=== PATIENT | female | born 1975 | race Asian ===

== ENCOUNTER 2018-03-13 13:11 | Inpatient (IN) | payer OTHER ==
[~2018-03-13] VITALS: Ht 160 cm; Wt 53.1 kg
[2018-03-13] MEDS ORDERED: Morphine Sulfate 2mg/ml Inj IVP ONE (13:45)
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
[2018-03-13 13:57] VITALS: BP 88/56
[2018-03-13] MEDS ORDERED: fentaNYL 100 mcg/2 mL IV ONE ×3 (15:00→19:00)
--- NOTE | 2018-03-13 15:07 | Diagnostic Imaging Report ---
Indication: Chest pain Technique: One view of the chest Comparison: none Findings: Lungs and pleural spaces are clear. Heart size is normal Impression: No acute process
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
[2018-03-13 15:36] LABS: MEAN CORPUSCULAR VOLUME 93 FL (80-99); PLATELET COUNT 305 K/UL (150-450); RED BLOOD COUNT 4.41 M/UL (4.20-5.40); RED CELL DISTRIBUTION WIDTH 10.4 % (11.6-14.8); WHITE BLOOD COUNT 18.2 K/UL (4.8-10.8)
[2018-03-13 15:49] LABS: ANION GAP 11 mmol/L (5-15); BLOOD UREA NITROGEN 12 mg/dL (7-18); CALCIUM 9.3 MG/DL (8.5-10.1); CARBON DIOXIDE 24 MMOL/L (21-32); CHLORIDE 104 MMOL/L (98-107); CREATININE 0.6 MG/DL (0.55-1.30); POTASSIUM 4.6 MMOL/L (3.5-5.1); SODIUM 139 MMOL/L (136-145)
[2018-03-13] MEDS ORDERED: Lidocaine 1% Plain 30 ml INJ ONE (16:15)
[2018-03-13 16:45] VITALS: BP 101/63
[2018-03-13] MEDS ORDERED: NKM (19:45)
[2018-03-13 20:24] VITALS: BP 96/6
[2018-03-13 20:45] VITALS: BP 110/71
[2018-03-13] MEDS ORDERED: DiphenhydrAMINE 50mg/ml Inj IVP PRN (22:00)
[2018-03-13] MEDS ORDERED: Morphine Sulfate 4mg/ml Inj (IV USE ONLY) IVP PRN (22:00)
[2018-03-13] MEDS: Morphine Sulfate 2mg/ml Inj IVP PRN (22:52)
[2018-03-14 04:11] VITALS: BP 96/58
[2018-03-14 07:04] LABS: BASOPHILS % (AUTO) 0.4 % (0.0-2.0); EOSINOPHILS % (AUTO) 0.3 % (0.0-3.0); HEMATOCRIT 35.9 % (37.0-47.0); HEMOGLOBIN 12.6 G/DL (12.0-16.0); LYMPHOCYTES % (AUTO) 20.5 % (20.0-45.0); MEAN CORPUSCULAR VOLUME 93 FL (80-99); MONOCYTES % (AUTO) 8.3 % (1.0-10.0); NEUTROPHILS % (AUTO) 70.4 % (45.0-75.0); PLATELET COUNT 267 K/UL (150-450); RED BLOOD COUNT 3.87 M/UL (4.20-5.40); RED CELL DISTRIBUTION WIDTH 10.2 % (11.6-14.8); WHITE BLOOD COUNT 7.7 K/UL (4.8-10.8)
[2018-03-14 08:00] VITALS: BP 97/59
[2018-03-14] MEDS: Morphine Sulfate 2mg/ml Inj IVP PRN ×4 (08:55→20:03)
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
--- NOTE | 2018-03-14 10:42 | Diagnostic Imaging Report ---
Indication: pain Right hand pain Findings: 3 views of the right hand were obtained. There is a severe impacted fracture of the distal radius and ulna with comminution, intra-articular extension and severe impaction dorsal displacement. Soft tissue swelling noted. IMPRESSION: Severe comminuted intra-articular fracture with the impaction involving the distal radius and ulna
--- NOTE | 2018-03-14 10:43 | Diagnostic Imaging Report ---
Indication: Acute fracture. Status post reduction Findings: 2 views of the right wrist were obtained. Volar aspect splint noted obscuring detail. There is improved alignment with respect to the distal radius and ulnar fractures. There is still considerable impaction present and significant malalignment present. IMPRESSION: Some improvement in alignment but with significant residual displacement and impaction.
[2018-03-14 12:00] VITALS: BP 104/71
[2018-03-14 16:00] VITALS: BP 116/72
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
== END 2018-03-14 20:55 | disposition short-term general hospital (02) | DRG 563 ==
LOC: EDBD 13:11 → EMR 15:26 → EDBEDREQ 20:00 → 3E 20:10
PROC: 0HQFXZZ Repair Right Hand Skin, External Approach (ICD-10-PCS; principal; 2018-03-13)
PROC: 2W3CX1Z Immobilization of Right Lower Arm using Splint (ICD-10-PCS; principal; 2018-03-13)
DX: S52.591A Other fractures of lower end of right radius, initial encounter for closed fracture (principal); S52.691A Other fracture of lower end of right ulna, initial encounter for closed fracture; V89.2XXA Person injured in unspecified motor-vehicle accident, traffic, initial encounter; Y92.410 Unspecified street and highway as the place of occurrence of the external cause; S61.214A Laceration without foreign body of right ring finger without damage to nail, initial encounter
CPT/HCPCS: 36415; 71045; 80048; 85007; 85025; 85610; 85730; 86850; 86900; 86901; 94760; 96374; 96375; 99285